=== PATIENT | male | born 1965 | race Caucasian/White ===

== ENCOUNTER 2019-03-26 05:48 | Inpatient (IN) | payer BC ==
[2019-03-26 06:33] LABS: ADD MAN DIFF? NO
[2019-03-26 06:49] LABS: WHITE BLOOD COUNT 3.4 10^3/ul (4.8-10.8)
[2019-03-26 06:49] LABS: BASOPHILS % 0.9 % (0.0-2.0); EOSINOPHILS # 0.1 10^3/ul (0.0-0.5); HEMATOCRIT 40.4 % (42.0-52.0); HEMOGLOBIN 13.1 g/dl (14.0-18.0); LYMPHOCYTES # 1.3 10^3/ul (0.8-2.9); LYMPHOCYTES % 37.2 % (15.0-51.0); MEAN CORPUSCULAR HEMOGLOBIN 24.9 pg (29.0-33.0); MEAN CORPUSCULAR HGB CONC 32.4 g/dl (32.0-37.0); MEAN CORPUSCULAR VOLUME 76.7 fl (82.0-101.0); MEAN PLATELET VOLUME 11.1 fl (7.4-10.4); MONOCYTE # 0.3 10^3/ul (0.3-0.9); MONOCYTES % 9.6 % (0.0-11.0); NEUTROPHIL # 1.7 10^3/ul (1.6-7.5); NEUTROPHILS % 49.7 % (39.0-77.0); PLATELET COUNT 162 10^3/UL (140-415); RED BLOOD COUNT 5.27 10^6/ul (4.70-6.10); RED CELL DISTRIBUTION WIDTH 13.7 % (11.5-14.5)
[2019-03-26] MEDS ORDERED: CEFAZOLIN 1 GM INJ ×2 (07:00→08:37)
[2019-03-26 07:01] LABS: INR 0.95; PROTIME 12.8 Sec (11.9-14.9)
[2019-03-26 07:02] LABS: HOLD TRANSMISSIONS 1; PARTIAL THROMBOPLASTIN TIME 28.8 Sec (23.0-35.0)
[2019-03-26] MEDS: LACTATED RINGER'S 1,000 ML IV (07:06)
[2019-03-26] MEDS: SOD CHLORIDE 0.9% 250 ML IV* (07:24)
[2019-03-26 07:25] LABS: ALANINE AMINOTRANSFERASE 38 IU/L (13-69); ALBUMIN 4.5 g/dl (3.3-4.9); ALKALINE PHOSPHATASE 42 IU/L (42-121); ANION GAP 9 (5-13); ASPARTATE AMINO TRANSFERASE 27 IU/L (15-46); BILIRUBIN,INDIRECT 1.5 mg/dl (0-1.1); BILIRUBIN,TOTAL 1.5 mg/dl (0.2-1.3); BLOOD UREA NITROGEN 17 mg/dl (7-20); CARBON DIOXIDE 28 mmol/L (21-31); CHLORIDE 104 mmol/L (97-110); CREATININE 0.85 mg/dl (0.61-1.24); Estimated GFR > 60 mL/min (>60); GLUCOSE 113 mg/dl (70-220); POTASSIUM 3.9 mmol/L (3.5-5.1); SODIUM 141 mmol/L (135-144); TOTAL PROTEIN 7.9 g/dl (6.1-8.1)
[2019-03-26 07:26] LABS: ALBUMIN/GLOBULIN RATIO 1.32
[2019-03-26] MEDS ORDERED: MEPERIDINE 25 MG INJ IV (07:30)
[2019-03-26] MEDS ORDERED: PROCHLORPERAZINE 10 MG INJ IV (07:30)
[2019-03-26] MEDS ORDERED: LABETALOL HCL 20MG INJ IV (07:30)
[2019-03-26] MEDS ORDERED: DIPHENHYDRAMINE 50 MG INJ IV (07:30)
[2019-03-26] MEDS ORDERED: HYDROmorphONE 1 MG/5 ML IV SYRINGE IV (07:30)
[2019-03-26] MEDS ORDERED: FENTAnyl 50 MCG/ML VIAL IV ×2 (07:30)
[2019-03-26] MEDS ORDERED: LIDOCAINE 2% (SDV) 5 ML INJ (08:07)
[2019-03-26] MEDS ORDERED: PROPOFOL 20 ML ×2 (08:07→08:57)
[2019-03-26] MEDS ORDERED: MIDAZOLAM 1 MG/ML 2 ML INJ (08:08)
[2019-03-26] MEDS ORDERED: ROCURONIUM 50 MG INJ (08:09)
[2019-03-26] MEDS ORDERED: FAMOTIDINE 20 MG INJ (08:37)
[2019-03-26] MEDS ORDERED: ONDANSETRON 4 MG INJ (08:37)
[2019-03-26] MEDS ORDERED: EPHEDrine 25 MG/5 ML SYG (08:37)
[2019-03-26] MEDS ORDERED: DEXAMETHASONE 4 MG/ML 5 ML INJ (08:37)
[2019-03-26] MEDS ORDERED: SUCCINYLCHOLINE CHLORIDE 100 MG/5 ML SYG IV (09:06)
[2019-03-26] MEDS ORDERED: HYDROmorphONE 2 MG/ML SYG (09:47)
[2019-03-26] MEDS: GELATIN SIZE 100 SPONGE (09:54)
[2019-03-26] MEDS: THROMBIN (BOVINE) 5,000 UNIT VIAL TP (09:54)
[2019-03-26] MEDS: POLYMYXIN/BACITRACIN 1L IRRIG (09:55)
[2019-03-26] MEDS: ROPIVACAINE 0.5 % 30 ML VIAL ×2 (09:55)
[2019-03-26] MEDS ORDERED: GLYCOPYRROLATE 0.4 MG INJ (10:45)
[2019-03-26] MEDS ORDERED: NEOSTIGMINE 3 MG/3 ML SYRINGE (10:45)
[2019-03-26] MEDS: FENTAnyl 50 MCG/ML VIAL IV ×2 (11:40→12:05)
[2019-03-26] MEDS ORDERED: NACL 0.9% 3 ML SYG IV (12:00)
[2019-03-26] MEDS ORDERED: NALOXONE (0.4 MG/ML) INJ IV (12:00)
[2019-03-26] MEDS: HYDROmorphONE 1 MG/5 ML IV SYRINGE IV ×2 (12:22→13:25)
[2019-03-26] MEDS: ONDANSETRON 4 MG INJ IV (12:22)
[2019-03-26] MEDS: HYDROmorphONE 1 MG/ML SYG IV ×4 (13:51→23:37)
[2019-03-26] MEDS: hydrALAzine 20 MG INJ IV ×2 (13:52→18:30)
[2019-03-26] MEDS: CEFAZOLIN 2 GM/50 ML (PMX) 50 ML IVPB ×2 (14:41→22:36)
[2019-03-26] MEDS: NS + KCL 20 MEQ 1,000 ML IV ×3 (14:42→22:00)
[2019-03-26] MEDS: HYDROCODONE/APAP (10/325) TAB PO (15:08)
[2019-03-26] MEDS: METOPROLOL 25 MG TAB PO (20:17)
[2019-03-27] MEDS: HYDROmorphONE 1 MG/ML SYG IV ×2 (02:35→20:55)
[2019-03-27] MEDS: NS + KCL 20 MEQ 1,000 ML IV ×2 (02:48→13:16)
[2019-03-27 05:04] LABS: ADD MAN DIFF? NO
[2019-03-27 05:11] LABS: WHITE BLOOD COUNT 9.1 10^3/ul (4.8-10.8)
[2019-03-27 05:11] LABS: BASOPHILS % 0.2 % (0.0-2.0); EOSINOPHILS % 0.1 % (0.0-7.0); HEMATOCRIT 35.2 % (42.0-52.0); HEMOGLOBIN 11.3 g/dl (14.0-18.0); LYMPHOCYTES % 11.3 % (15.0-51.0); MEAN CORPUSCULAR HEMOGLOBIN 24.9 pg (29.0-33.0); MEAN CORPUSCULAR HGB CONC 32.1 g/dl (32.0-37.0); MEAN CORPUSCULAR VOLUME 77.7 fl (82.0-101.0); MONOCYTE # 0.6 10^3/ul (0.3-0.9); NEUTROPHIL # 7.4 10^3/ul (1.6-7.5); NEUTROPHILS % 81.1 % (39.0-77.0); PLATELET COUNT 178 10^3/UL (140-415); RED BLOOD COUNT 4.53 10^6/ul (4.70-6.10); RED CELL DISTRIBUTION WIDTH 13.9 % (11.5-14.5)
[2019-03-27 05:30] LABS: ANION GAP 8 (5-13); BLOOD UREA NITROGEN 12 mg/dl (7-20); CARBON DIOXIDE 28 mmol/L (21-31); CHLORIDE 100 mmol/L (97-110); CREATININE 0.81 mg/dl (0.61-1.24); Estimated GFR > 60 mL/min (>60); GLUCOSE 129 mg/dl (70-220); POTASSIUM 4.6 mmol/L (3.5-5.1); SODIUM 136 mmol/L (135-144)
[2019-03-27] MEDS: HYDROCODONE/APAP (10/325) TAB PO ×4 (06:21→17:05)
[2019-03-27] MEDS: CEFAZOLIN 2 GM/50 ML (PMX) 50 ML IVPB ×3 (06:21→21:50)
[2019-03-27] MEDS: METOPROLOL 25 MG TAB PO ×2 (08:38→10:30)
[2019-03-27] MEDS: hydrALAzine 20 MG INJ IV (08:43)
[2019-03-27] MEDS: BENAZEPRIL 20 MG TAB PO (11:25)
[2019-03-27] MEDS: METOPROLOL 50 MG TAB PO (20:03)
[2019-03-28] MEDS: HYDROmorphONE 1 MG/ML SYG IV ×4 (00:08→14:25)
[2019-03-28] MEDS: CEFAZOLIN 2 GM/50 ML (PMX) 50 ML IVPB ×3 (06:05→22:31)
[2019-03-28] MEDS: METOPROLOL 50 MG TAB PO ×2 (08:22→20:20)
[2019-03-28] MEDS: BENAZEPRIL 20 MG TAB PO (08:22)
[2019-03-28] MEDS: HYDROCODONE/APAP (10/325) TAB PO ×3 (10:44→20:38)
[2019-03-28] MEDS: METHOCARBAMOL 750 MG TAB PO (19:27)
[2019-03-29] MEDS: HYDROCODONE/APAP (10/325) TAB PO ×6 (00:39→22:55)
[2019-03-29] MEDS: CEFAZOLIN 2 GM/50 ML (PMX) 50 ML IVPB ×2 (05:43→13:58)
[2019-03-29] MEDS: METHOCARBAMOL 750 MG TAB PO ×2 (06:34→20:03)
[2019-03-29] MEDS: BENAZEPRIL 20 MG TAB PO (10:19)
[2019-03-29] MEDS: METOPROLOL 50 MG TAB PO ×2 (10:19→20:03)
[2019-03-29] MEDS: DOCUSATE SODIUM 100 MG CAP PO (13:58)
[2019-03-30] MEDS: HYDROCODONE/APAP (10/325) TAB PO ×4 (03:32→22:40)
[2019-03-30] MEDS: METHOCARBAMOL 750 MG TAB PO ×2 (07:29→20:37)
[2019-03-30] MEDS: DOCUSATE SODIUM 100 MG CAP PO (08:31)
[2019-03-30] MEDS: BENAZEPRIL 20 MG TAB PO (08:31)
[2019-03-30] MEDS: METOPROLOL 50 MG TAB PO ×2 (08:32→20:38)
[2019-03-31] MEDS ORDERED: DICLOFENAC SODIUM 1% GEL 100 GM TUBE TP
[2019-03-31] MEDS: LIDOCAINE 5% PATCH TD (00:41)
[2019-03-31] MEDS: HYDROmorphONE 1 MG/ML SYG IV (01:46)
[2019-03-31] MEDS: HYDROCODONE/APAP (10/325) TAB PO ×3 (05:48→16:54)
[2019-03-31] MEDS: BENAZEPRIL 20 MG TAB PO (08:30)
[2019-03-31] MEDS: METOPROLOL 50 MG TAB PO (08:30)
[2019-03-31] MEDS: DOCUSATE SODIUM 100 MG CAP PO (08:30)
== END 2019-03-31 18:30 | disposition home or self-care (01) | DRG 472 ==
LOC: REC 05:48 → TEL 03-31 14:45 → ICU 13:49 → TEL 03-27 22:35
PROC: 0RG2071 Fusion of 2 or more Cervical Vertebral Joints with Autologous Tissue Substitute, Posterior Approach, Posterior Column, Open Approach (ICD-10-PCS; principal; 2019-03-26 07:30)
DX: M48.02 Spinal stenosis, cervical region (principal); G99.2 Myelopathy in diseases classified elsewhere; I10 Essential (primary) hypertension
CPT/HCPCS: 71045; 72020; 72125; 80048; 80053; 85025; 85610; 85730; 86850; 86900; 86901; 86920; 87081; 87086; 88304; 88311; 93005; 97116; 97162; 97530

== ENCOUNTER 2019-05-11 22:06 | Inpatient (IN) | payer BC ==
[2019-05-11 22:58] LABS: ADD MAN DIFF? NO
[2019-05-11] MEDS: SOD CHLORIDE 0.9% 500 ML IV (22:58)
[2019-05-11 23:00] LABS: BASOPHILS % 0.7 % (0.0-2.0); EOSINOPHILS # 0.1 10^3/ul (0.0-0.5); EOSINOPHILS % 2.2 % (0.0-7.0); HEMATOCRIT 37.2 % (42.0-52.0); HEMOGLOBIN 11.7 g/dl (14.0-18.0); LYMPHOCYTES # 1.5 10^3/ul (0.8-2.9); LYMPHOCYTES % 33.9 % (15.0-51.0); MEAN CORPUSCULAR HEMOGLOBIN 24.8 pg (29.0-33.0); MEAN CORPUSCULAR HGB CONC 31.5 g/dl (32.0-37.0); MEAN CORPUSCULAR VOLUME 78.8 fl (82.0-101.0); MEAN PLATELET VOLUME 10.5 fl (7.4-10.4); MONOCYTE # 0.3 10^3/ul (0.3-0.9); MONOCYTES % 6.5 % (0.0-11.0); NEUTROPHIL # 2.5 10^3/ul (1.6-7.5); NEUTROPHILS % 55.8 % (39.0-77.0); PLATELET COUNT 184 10^3/UL (140-415); RED BLOOD COUNT 4.72 10^6/ul (4.70-6.10); RED CELL DISTRIBUTION WIDTH 13.8 % (11.5-14.5)
[2019-05-11 23:00] LABS: WHITE BLOOD COUNT 4.5 10^3/ul (4.8-10.8)
[2019-05-11 23:20] LABS: INR 0.88; PARTIAL THROMBOPLASTIN TIME 27.9 Sec (23.0-35.0); PT RATIO 0.9
[2019-05-11] MEDS: ONDANSETRON 4 MG INJ IV (23:22)
[2019-05-11] MEDS: HYDROmorphONE 1 MG/ML SYG IV (23:22)
[2019-05-11 23:36] LABS: ALANINE AMINOTRANSFERASE 28 IU/L (13-69); ALBUMIN 4.6 g/dl (3.3-4.9); ALBUMIN/GLOBULIN RATIO 1.48; ALKALINE PHOSPHATASE 51 IU/L (42-121); ANION GAP 10 (5-13); ASPARTATE AMINO TRANSFERASE 22 IU/L (15-46); BILIRUBIN,INDIRECT 0.7 mg/dl (0-1.1); BILIRUBIN,TOTAL 0.7 mg/dl (0.2-1.3); BLOOD UREA NITROGEN 14 mg/dl (7-20); CALCIUM 9.7 mg/dl (8.4-10.2); CARBON DIOXIDE 28 mmol/L (21-31); CHLORIDE 102 mmol/L (97-110); CREATININE 0.86 mg/dl (0.61-1.24); Estimated GFR > 60 mL/min (>60); GLUCOSE 131 mg/dl (70-220); LIPASE 109 U/L (23-300); POTASSIUM 3.8 mmol/L (3.5-5.1); SODIUM 140 mmol/L (135-144); TOTAL PROTEIN 7.7 g/dl (6.1-8.1)
[2019-05-12] MEDS ORDERED: ONDANSETRON 4 MG INJ IV ×2 (01:00→14:00)
[2019-05-12] MEDS ORDERED: ACETAMINOPHEN 325 MG TAB PO (01:00)
[2019-05-12] MEDS ORDERED: hydrALAzine 20 MG INJ IV (13:30)
[2019-05-12] MEDS ORDERED: HYDROmorphONE 1 MG/ML SYG IV (14:00)
[2019-05-12] MEDS: DEXTROSE 5%-0.45% NACL 1,000 ML IV ×2 (14:40→21:36)
[2019-05-13 05:10] LABS: ADD MAN DIFF? NO
[2019-05-13 05:16] LABS: BASOPHIL # 0.1 10^3/ul (0.0-0.1); BASOPHILS % 1.3 % (0.0-2.0); EOSINOPHILS # 0.1 10^3/ul (0.0-0.5); EOSINOPHILS % 1.9 % (0.0-7.0); HEMATOCRIT 37.8 % (42.0-52.0); HEMOGLOBIN 12.1 g/dl (14.0-18.0); LYMPHOCYTES # 1.3 10^3/ul (0.8-2.9); LYMPHOCYTES % 36.1 % (15.0-51.0); MEAN CORPUSCULAR HEMOGLOBIN 24.7 pg (29.0-33.0); MEAN CORPUSCULAR VOLUME 77.3 fl (82.0-101.0); MEAN PLATELET VOLUME 10.9 fl (7.4-10.4); MONOCYTE # 0.3 10^3/ul (0.3-0.9); MONOCYTES % 7.8 % (0.0-11.0); NEUTROPHIL # 1.9 10^3/ul (1.6-7.5); NEUTROPHILS % 52.4 % (39.0-77.0); PLATELET COUNT 193 10^3/UL (140-415); RED BLOOD COUNT 4.89 10^6/ul (4.70-6.10); RED CELL DISTRIBUTION WIDTH 13.9 % (11.5-14.5)
[2019-05-13 05:16] LABS: WHITE BLOOD COUNT 3.7 10^3/ul (4.8-10.8)
[2019-05-13 05:33] LABS: ANION GAP 11 (5-13); BLOOD UREA NITROGEN 11 mg/dl (7-20); CALCIUM 9.1 mg/dl (8.4-10.2); CARBON DIOXIDE 30 mmol/L (21-31); CHLORIDE 102 mmol/L (97-110); CREATININE 0.88 mg/dl (0.61-1.24); Estimated GFR > 60 mL/min (>60); GLUCOSE 110 mg/dl (70-220); POTASSIUM 4.1 mmol/L (3.5-5.1); SODIUM 143 mmol/L (135-144)
[2019-05-13] MEDS: BENAZEPRIL 20 MG TAB PO (08:47)
[2019-05-13] MEDS: DEXTROSE 5%-0.45% NACL 1,000 ML IV ×2 (10:56→23:16)
[2019-05-14] MEDS: BENAZEPRIL 20 MG TAB PO (08:27)
[2019-05-19] MEDS ORDERED: CEFAZOLIN 1 GM INJ (17:15)
[2019-05-19] MEDS ORDERED: GLYCOPYRROLATE 0.4 MG INJ (17:15)
[2019-05-19] MEDS ORDERED: ROCURONIUM 50 MG INJ (17:15)
[2019-05-19] MEDS ORDERED: NEOSTIGMINE 3 MG/3 ML SYRINGE (17:15)
[2019-05-19] MEDS ORDERED: PROPOFOL 20 ML (17:15)
[2019-05-19] MEDS ORDERED: DEXAMETHASONE 4 MG/ML 5 ML INJ (17:16)
[2019-05-19] MEDS ORDERED: MIDAZOLAM 1 MG/ML 2 ML INJ (17:16)
[2019-05-19] MEDS ORDERED: FENTAnyl 50 MCG/ML VIAL (17:16)
[2019-05-19] MEDS ORDERED: ONDANSETRON 4 MG INJ (17:16)
== END 2019-05-14 15:00 | disposition home or self-care (01) | DRG 552 ==
LOC: E/R 22:06 → MS1 05-12 01:00
DX: M47.26 Other spondylosis with radiculopathy, lumbar region (principal); I10 Essential (primary) hypertension; Z79.82 Long term (current) use of aspirin; Z98.1 Arthrodesis status
CPT/HCPCS: 36415; 71045; 80048; 80053; 83690; 85025; 85610; 85730; 86850; 86900; 86901; 86920; 93005; 99285-25

== ENCOUNTER 2019-05-18 09:49 | Inpatient (IN) | payer BC ==
[2019-05-18 10:51] LABS: ADD MAN DIFF? NO
[2019-05-18 10:52] LABS: EOSINOPHILS # 0.1 10^3/ul (0.0-0.5); HEMATOCRIT 40.5 % (42.0-52.0); HEMOGLOBIN 12.8 g/dl (14.0-18.0); LYMPHOCYTES # 1.4 10^3/ul (0.8-2.9); LYMPHOCYTES % 35.5 % (15.0-51.0); MEAN CORPUSCULAR HEMOGLOBIN 24.6 pg (29.0-33.0); MEAN CORPUSCULAR HGB CONC 31.6 g/dl (32.0-37.0); MEAN CORPUSCULAR VOLUME 77.9 fl (82.0-101.0); MONOCYTE # 0.3 10^3/ul (0.3-0.9); MONOCYTES % 7.8 % (0.0-11.0); NEUTROPHIL # 2.1 10^3/ul (1.6-7.5); NEUTROPHILS % 53.2 % (39.0-77.0); PLATELET COUNT 185 10^3/UL (140-415); RED CELL DISTRIBUTION WIDTH 13.7 % (11.5-14.5)
[2019-05-18] MEDS: morphine 4 MG/ML VIAL IV (10:58)
[2019-05-18] MEDS: ONDANSETRON 4 MG INJ IV (10:58)
[2019-05-18] MEDS ORDERED: ONDANSETRON 4 MG INJ IV (11:00)
[2019-05-18] MEDS ORDERED: ACETAMINOPHEN 325 MG TAB PO ×2 (11:00→16:00)
[2019-05-18 11:09] LABS: ANION GAP 9 (5-13); BLOOD UREA NITROGEN 13 mg/dl (7-20); CALCIUM 9.5 mg/dl (8.4-10.2); CARBON DIOXIDE 28 mmol/L (21-31); CHLORIDE 105 mmol/L (97-110); CREATININE 0.81 mg/dl (0.61-1.24); Estimated GFR > 60 mL/min (>60); GLUCOSE 107 mg/dl (70-220); POTASSIUM 4.4 mmol/L (3.5-5.1); SODIUM 142 mmol/L (135-144)
[2019-05-18 11:17] LABS: INR 0.92; PROTIME 12.5 Sec (11.9-14.9)
[2019-05-18 11:21] LABS: TROPONIN-I < 0.012 ng/ml (0.000-0.120)
[2019-05-18] MEDS: DOCUSATE SODIUM 100 MG CAP PO ×2 (16:00→20:43)
[2019-05-18] MEDS ORDERED: hydrALAzine 20 MG INJ IV (16:30)
[2019-05-18] MEDS: FAMOTIDINE 20 MG TAB PO (20:27)
[2019-05-19 05:18] LABS: ADD MAN DIFF? NO
[2019-05-19 05:23] LABS: EOSINOPHILS # 0.1 10^3/ul (0.0-0.5); HEMATOCRIT 38.9 % (42.0-52.0); HEMOGLOBIN 12.1 g/dl (14.0-18.0); LYMPHOCYTES # 1.8 10^3/ul (0.8-2.9); LYMPHOCYTES % 45.7 % (15.0-51.0); MEAN CORPUSCULAR HEMOGLOBIN 24.4 pg (29.0-33.0); MEAN CORPUSCULAR HGB CONC 31.1 g/dl (32.0-37.0); MEAN CORPUSCULAR VOLUME 78.6 fl (82.0-101.0); MEAN PLATELET VOLUME 11.2 fl (7.4-10.4); MONOCYTE # 0.3 10^3/ul (0.3-0.9); MONOCYTES % 7.8 % (0.0-11.0); NEUTROPHIL # 1.7 10^3/ul (1.6-7.5); NEUTROPHILS % 41.5 % (39.0-77.0); PLATELET COUNT 180 10^3/UL (140-415); RED BLOOD COUNT 4.95 10^6/ul (4.70-6.10); RED CELL DISTRIBUTION WIDTH 13.6 % (11.5-14.5)
[2019-05-19 05:38] LABS: ANION GAP 7 (5-13); BLOOD UREA NITROGEN 15 mg/dl (7-20); CALCIUM 9.4 mg/dl (8.4-10.2); CARBON DIOXIDE 31 mmol/L (21-31); CHLORIDE 105 mmol/L (97-110); CREATININE 0.95 mg/dl (0.61-1.24); Estimated GFR > 60 mL/min (>60); GLUCOSE 101 mg/dl (70-220); POTASSIUM 5.2 mmol/L (3.5-5.1); SODIUM 143 mmol/L (135-144)
[2019-05-19] MEDS: FAMOTIDINE 20 MG TAB PO ×2 (08:44→21:00)
[2019-05-19] MEDS: BENAZEPRIL 20 MG TAB PO (08:45)
[2019-05-19] MEDS: SOD CHLORIDE 0.9% 1,000 ML IV ×2 (10:37→21:35)
[2019-05-19] MEDS: DOCUSATE SODIUM 100 MG CAP PO (16:00)
[2019-05-19] MEDS ORDERED: DESFLURANE 15 MIN (17:00)
[2019-05-19] MEDS ORDERED: HEPARIN 1000 UNITS/ML 10 ML INJ (18:32)
[2019-05-19] MEDS ORDERED: ROPIVACAINE 0.5 % 30 ML VIAL (19:01)
[2019-05-19] MEDS: THROMBIN 5000 UNIT VIAL TOP (19:29)
[2019-05-19] MEDS: GELATIN SIZE 100 SPONGE (19:29)
[2019-05-19] MEDS: CEFAZOLIN 1 GM INJ (19:29)
[2019-05-19] MEDS: SURGIFOAM POWDER 1 GM KIT MM (19:29)
[2019-05-19] MEDS ORDERED: hydrALAzine 20 MG INJ (19:43)
[2019-05-19] MEDS ORDERED: SUGAMMADEX SODIUM 200 MG/2 ML VIAL IV (20:38)
[2019-05-19] MEDS ORDERED: MIDAZOLAM 1 MG/ML 2 ML INJ IV (21:00)
[2019-05-19] MEDS ORDERED: EPHEDrine 25 MG/5 ML SYG IV (21:00)
[2019-05-19] MEDS ORDERED: LABETALOL HCL 20MG INJ IV (21:00)
[2019-05-19] MEDS ORDERED: TRIMETHOBENZAMIDE 100 MG/ML VIAL IM (21:00)
[2019-05-19] MEDS ORDERED: OXYCODONE/ACETAMINOPHEN (5/325) TAB PO ×2 (21:00)
[2019-05-19] MEDS ORDERED: ALBUTEROL 0.083% (NEB) 2.5 MG/3 ML AMP HHN (21:00)
[2019-05-19] MEDS ORDERED: MEPERIDINE 25 MG INJ IV (21:00)
[2019-05-19] MEDS ORDERED: HYDROmorphONE 1 MG/5 ML IV SYRINGE IV (21:00)
[2019-05-19] MEDS ORDERED: DIPHENHYDRAMINE 50 MG INJ IV (21:00)
[2019-05-19] MEDS ORDERED: FENTAnyl 50 MCG/ML VIAL IV ×3 (21:00)
[2019-05-19] MEDS ORDERED: ONDANSETRON 4 MG INJ IV (21:00)
[2019-05-19] MEDS ORDERED: IPRATROPIUM (NEB) 0.5 MG/2.5 ML AMP HHN (21:00)
[2019-05-19] MEDS ORDERED: hydrALAzine 20 MG INJ IV (21:00)
[2019-05-19] MEDS: HYDROmorphONE 1 MG/5 ML IV SYRINGE IV ×2 (21:20→21:32)
[2019-05-19 22:11] LABS: ADD UMIC YES; UR ASCORBIC ACID NEGATIVE (NEGATIVE); UR BILIRUBIN (Dip) NEGATIVE (NEGATIVE); UR BLOOD (Dip) 3+ mg/dL (NEGATIVE); UR CLARITY SLIGHTLY CLOUDY (CLEAR); UR COLOR YELLOW (YELLOW); UR GLUCOSE (Dip) NEGATIVE (NEGATIVE); UR KETONES (Dip) TRACE mg/dL (NEGATIVE); UR LEUKOCYTE ESTERASE (Dip) NEGATIVE Leu/ul (NEGATIVE); UR MUCUS FEW /HPF (NONE SEEN); UR NITRITE (Dip) NEGATIVE (NEGATIVE); UR RBC > 182 /HPF (0-5); UR SPECIFIC GRAVITY (Dip) 1.012 (1.003-1.030); UR TOTAL PROTEIN (Dip) 2+ mg/dl (NEGATIVE); UR UROBILINOGEN (Dip) NEGATIVE (NEGATIVE); UR WBC 2 /HPF (0-5)
[2019-05-20] LABS: ADD MAN DIFF? NO
[2019-05-20 00:03] LABS: BASOPHILS % 0.3 % (0.0-2.0); HEMATOCRIT 35.6 % (42.0-52.0); HEMOGLOBIN 11.5 g/dl (14.0-18.0); LYMPHOCYTES # 0.6 10^3/ul (0.8-2.9); LYMPHOCYTES % 6.3 % (15.0-51.0); MEAN CORPUSCULAR HEMOGLOBIN 24.8 pg (29.0-33.0); MEAN CORPUSCULAR HGB CONC 32.3 g/dl (32.0-37.0); MEAN CORPUSCULAR VOLUME 76.7 fl (82.0-101.0); MONOCYTE # 0.1 10^3/ul (0.3-0.9); MONOCYTES % 1.3 % (0.0-11.0); NEUTROPHIL # 8.7 10^3/ul (1.6-7.5); NEUTROPHILS % 91.5 % (39.0-77.0); PLATELET COUNT 175 10^3/UL (140-415); RED BLOOD COUNT 4.64 10^6/ul (4.70-6.10); RED CELL DISTRIBUTION WIDTH 13.7 % (11.5-14.5)
[2019-05-20 00:03] LABS: WHITE BLOOD COUNT 9.5 10^3/ul (4.8-10.8)
[2019-05-20 00:23] LABS: ANION GAP 11 (5-13); BLOOD UREA NITROGEN 13 mg/dl (7-20); CALCIUM 8.7 mg/dl (8.4-10.2); CARBON DIOXIDE 24 mmol/L (21-31); CHLORIDE 104 mmol/L (97-110); CREATININE 1.01 mg/dl (0.61-1.24); Estimated GFR > 60 mL/min (>60); GLUCOSE 182 mg/dl (70-220); POTASSIUM 3.4 mmol/L (3.5-5.1); SODIUM 139 mmol/L (135-144)
[2019-05-20] MEDS: HYDROmorphONE 0.5 MG/0.5 ML SYG IV ×2 (00:41→21:49)
[2019-05-20 00:53] LABS: INR 1.07; PT RATIO 1.1
[2019-05-20 00:54] LABS: PARTIAL THROMBOPLASTIN TIME 26.9 Sec (23.0-35.0)
[2019-05-20] MEDS: DOCUSATE SODIUM 100 MG CAP PO ×2 (04:00→15:06)
[2019-05-20 05:25] LABS: ADD MAN DIFF? NO
[2019-05-20 05:30] LABS: BASOPHILS % 0.1 % (0.0-2.0); HEMATOCRIT 34.7 % (42.0-52.0); HEMOGLOBIN 11.3 g/dl (14.0-18.0); LYMPHOCYTES # 0.8 10^3/ul (0.8-2.9); LYMPHOCYTES % 8.2 % (15.0-51.0); MEAN CORPUSCULAR HEMOGLOBIN 24.5 pg (29.0-33.0); MEAN CORPUSCULAR HGB CONC 32.6 g/dl (32.0-37.0); MEAN CORPUSCULAR VOLUME 75.1 fl (82.0-101.0); MEAN PLATELET VOLUME 11.3 fl (7.4-10.4); MONOCYTE # 0.2 10^3/ul (0.3-0.9); MONOCYTES % 2.4 % (0.0-11.0); NEUTROPHIL # 8.3 10^3/ul (1.6-7.5); NEUTROPHILS % 88.7 % (39.0-77.0); PLATELET COUNT 178 10^3/UL (140-415); RED BLOOD COUNT 4.62 10^6/ul (4.70-6.10); RED CELL DISTRIBUTION WIDTH 13.9 % (11.5-14.5)
[2019-05-20 05:30] LABS: WHITE BLOOD COUNT 9.4 10^3/ul (4.8-10.8)
[2019-05-20 05:49] LABS: ANION GAP 11 (5-13); BLOOD UREA NITROGEN 15 mg/dl (7-20); CALCIUM 8.4 mg/dl (8.4-10.2); CARBON DIOXIDE 21 mmol/L (21-31); CHLORIDE 105 mmol/L (97-110); CREATININE 1.15 mg/dl (0.61-1.24); Estimated GFR > 60 mL/min (>60); GLUCOSE 177 mg/dl (70-220); POTASSIUM 4.1 mmol/L (3.5-5.1); SODIUM 137 mmol/L (135-144)
[2019-05-20] MEDS: FAMOTIDINE 20 MG TAB PO ×2 (08:02→21:00)
[2019-05-20] MEDS: BENAZEPRIL 20 MG TAB PO (08:02)
[2019-05-20] MEDS: SOD CHLORIDE 0.9% 1,000 ML IV (12:41)
[2019-05-20] MEDS ORDERED: ROPIVACAINE 0.5 % 30 ML VIAL (18:52)
[2019-05-20] MEDS ORDERED: POLYMYXIN/BACITRACIN 1L IRRIG (18:52)
[2019-05-20] MEDS ORDERED: FENTAnyl 50 MCG/ML VIAL (19:08)
[2019-05-20] MEDS ORDERED: THROMBIN 5000 UNIT VIAL (19:26)
[2019-05-20] MEDS ORDERED: SURGIFOAM POWDER 1 GM KIT (19:26)
[2019-05-20] MEDS ORDERED: GELATIN SIZE 100 SPONGE (19:26)
[2019-05-20] MEDS ORDERED: SUCCINYLCHOLINE CHLORIDE 100 MG/5 ML SYG IV (19:57)
[2019-05-20] MEDS ORDERED: PROPOFOL 20 ML (19:57)
[2019-05-20] MEDS ORDERED: LIDOCAINE 100 MG SYRINGE (19:57)
[2019-05-20] MEDS ORDERED: ROCURONIUM 50 MG INJ (19:57)
[2019-05-20] MEDS ORDERED: SUGAMMADEX SODIUM 200 MG/2 ML VIAL IV (19:57)
[2019-05-20] MEDS ORDERED: CEFAZOLIN 1 GM INJ (19:57)
[2019-05-20] MEDS: ROPIVACAINE 0.5 % 30 ML VIAL INJ ×2 (20:00)
[2019-05-20] MEDS: GELATIN SIZE 100 SPONGE TOP (20:01)
[2019-05-20] MEDS: THROMBIN 5000 UNIT VIAL TOP (20:01)
[2019-05-20] MEDS: ONDANSETRON 4 MG INJ IV (21:49)
[2019-05-21] MEDS: FAMOTIDINE 20 MG TAB PO ×3 (00:14→21:12)
[2019-05-21] MEDS: SOD CHLORIDE 0.9% 1,000 ML IV ×2 (00:28→13:46)
[2019-05-21] MEDS: HYDROmorphONE 0.5 MG/0.5 ML SYG IV ×3 (03:12→12:42)
[2019-05-21] MEDS: DOCUSATE SODIUM 100 MG CAP PO ×2 (04:25→18:21)
[2019-05-21 05:15] LABS: ADD MAN DIFF? NO
[2019-05-21 05:20] LABS: WHITE BLOOD COUNT 7.6 10^3/ul (4.8-10.8)
[2019-05-21 05:20] LABS: BASOPHILS % 0.1 % (0.0-2.0); HEMATOCRIT 29.5 % (42.0-52.0); HEMOGLOBIN 9.3 g/dl (14.0-18.0); LYMPHOCYTES % 13.5 % (15.0-51.0); MEAN CORPUSCULAR HEMOGLOBIN 24.7 pg (29.0-33.0); MEAN CORPUSCULAR HGB CONC 31.5 g/dl (32.0-37.0); MEAN CORPUSCULAR VOLUME 78.5 fl (82.0-101.0); MEAN PLATELET VOLUME 11.6 fl (7.4-10.4); MONOCYTE # 0.6 10^3/ul (0.3-0.9); MONOCYTES % 7.3 % (0.0-11.0); NEUTROPHILS % 78.7 % (39.0-77.0); PLATELET COUNT 166 10^3/UL (140-415); RED BLOOD COUNT 3.76 10^6/ul (4.70-6.10); RED CELL DISTRIBUTION WIDTH 14.1 % (11.5-14.5)
[2019-05-21 05:35] LABS: ANION GAP 7 (5-13); BLOOD UREA NITROGEN 17 mg/dl (7-20); CARBON DIOXIDE 24 mmol/L (21-31); CHLORIDE 109 mmol/L (97-110); CREATININE 1.37 mg/dl (0.61-1.24); Estimated GFR 54 mL/min (>60); GLUCOSE 113 mg/dl (70-220); POTASSIUM 4.1 mmol/L (3.5-5.1); SODIUM 140 mmol/L (135-144)
[2019-05-21] MEDS: HYDROCODONE/APAP (5/325) TAB PO ×3 (09:13→21:13)
[2019-05-21] MEDS: BENAZEPRIL 20 MG TAB PO (09:14)
[2019-05-21] MEDS: MAGNESIUM HYDROXIDE 30ML CUP PO (21:09)
[2019-05-21] MEDS: BETHANECHOL 10 MG TAB PO (21:13)
[2019-05-22] MEDS: HYDROCODONE/APAP (5/325) TAB PO ×3 (03:10→17:06)
[2019-05-22] MEDS: DOCUSATE SODIUM 100 MG CAP PO ×2 (05:00→17:06)
[2019-05-22] MEDS: SOD CHLORIDE 0.9% 1,000 ML IV (05:00)
[2019-05-22] MEDS: BENAZEPRIL 20 MG TAB PO (08:54)
[2019-05-22] MEDS: FAMOTIDINE 20 MG TAB PO ×2 (08:55→20:33)
[2019-05-22] MEDS: BETHANECHOL 10 MG TAB PO ×3 (08:55→20:33)
[2019-05-23] MEDS: HYDROCODONE/APAP (5/325) TAB PO ×3 (01:56→19:36)
[2019-05-23] MEDS: DOCUSATE SODIUM 100 MG CAP PO ×2 (03:04→18:53)
[2019-05-23] MEDS: BENAZEPRIL 20 MG TAB PO (09:17)
[2019-05-23] MEDS: BETHANECHOL 10 MG TAB PO ×3 (09:17→20:44)
[2019-05-23] MEDS: FAMOTIDINE 20 MG TAB PO ×2 (09:17→20:44)
[2019-05-23] MEDS: MAGNESIUM HYDROXIDE 30ML CUP PO (13:56)
[2019-05-24] MEDS: HYDROCODONE/APAP (5/325) TAB PO ×2 (01:54→08:40)
[2019-05-24] MEDS: DOCUSATE SODIUM 100 MG CAP PO ×2 (04:00→05:52)
[2019-05-24] MEDS: FAMOTIDINE 20 MG TAB PO (08:40)
[2019-05-24] MEDS: BETHANECHOL 10 MG TAB PO ×2 (08:40→13:00)
[2019-05-24] MEDS: BENAZEPRIL 20 MG TAB PO (08:40)
[2019-05-24] MEDS: BISACODYL (EC) 5 MG TAB PO (11:51)
[2019-05-24] MEDS: MAGNESIUM HYDROXIDE 30ML CUP PO (11:51)
== END 2019-05-24 13:45 | disposition home or self-care (01) | DRG 455 ==
LOC: MS1 05-21 19:38 → FTE 09:49 → ICU 05-19 23:30 → PP2 10:48 → MS1 14:41
PROC: 0SG00A0 Fusion of Lumbar Vertebral Joint with Interbody Fusion Device, Anterior Approach, Anterior Column, Open Approach (ICD-10-PCS; principal; 2019-05-19 18:30)
PROC: 0SG30A0 Fusion of Lumbosacral Joint with Interbody Fusion Device, Anterior Approach, Anterior Column, Open Approach (ICD-10-PCS; 2019-05-19 18:30)
PROC: 0SB20ZZ Excision of Lumbar Vertebral Disc, Open Approach (ICD-10-PCS; 2019-05-19 18:30)
PROC: 0SB40ZZ Excision of Lumbosacral Disc, Open Approach (ICD-10-PCS; 2019-05-19 18:30)
PROC: 0SG30K1 Fusion of Lumbosacral Joint with Nonautologous Tissue Substitute, Posterior Approach, Posterior Column, Open Approach (ICD-10-PCS; 2019-05-19 18:37)
PROC: 0SG10K1 Fusion of 2 or more Lumbar Vertebral Joints with Nonautologous Tissue Substitute, Posterior Approach, Posterior Column, Open Approach (ICD-10-PCS; 2019-05-19 18:37)
PROC: 0SB40ZZ Excision of Lumbosacral Disc, Open Approach (ICD-10-PCS; 2019-05-19 18:37)
PROC: 01NB0ZZ Release Lumbar Nerve, Open Approach (ICD-10-PCS; 2019-05-19 18:37)
PROC: 01NR0ZZ Release Sacral Nerve, Open Approach (ICD-10-PCS; 2019-05-19 18:37)
DX: M51.17 Intervertebral disc disorders with radiculopathy, lumbosacral region (principal); M47.26 Other spondylosis with radiculopathy, lumbar region; M48.061 Spinal stenosis, lumbar region without neurogenic claudication; M71.38 Other bursal cyst, other site; E88.2 Lipomatosis, not elsewhere classified; I10 Essential (primary) hypertension; Z98.1 Arthrodesis status
CPT/HCPCS: 36415; 72114; 72131; 80048; 81001; 84484; 85025; 85610; 85730; 86850; 86900; 86901; 86920; 87081; 88304; 88311; 93005; 97116; 97161; 97530; 99217; 99285-25; G0378